=== PATIENT | female | born 1975 | race Caucasian/White ===

== ENCOUNTER 2021-07-16 18:35 | Emergency (ER) | payer OTHER ==
[2021-07-16 18:56] VITALS: RESP 18; TEMP 97.7
[2021-07-16] MEDS ORDERED: SODIUM CHLORIDE 0.9% 1,000 ML IV STA (19:04)
[2021-07-16] MEDS ORDERED: PANTOPRAZOLE 40 MG/10 ML VIAL IVP STA (19:04)
--- NOTE | 2021-07-16 19:09 | ED ---
General Adult HPI - General Chief complaint: Nausea/Vomiting/Diarrhea Stated complaint: Nausea,Vomiting-ETOH withdrawal Time Seen by Provider: 07/16/21 18:55 Source: patient, RN notes reviewed, old records reviewed Mode of arrival: ambulatory - History of Present Illness Initial comments: 46-year-old female presents from [facility] for nausea and vomiting and abdominal pain. Patient states that since been ongoing for over a year and a half. She states that she did see a doctor in the past and was told she had an infected gallbladder and they could not remove it at that time and just gave her antibiotics. Patient states that she normally drinks a pint of vodka a day h owever she has not been having the " hard stuff " in over a month but she is still drinking daily just small cans of spritzers but is nonspecific. Patient states that she did drink this morning. She was sent from [facility] for evaluation of abdominal pain and self reported 18 pound weight loss over the past month. She does state she smokes marijuana daily but denies any drug use. She denies any homicidal or suicidal ideations. -: year(s) (1) Location: abdomen (Epigastric) Severity scale (1-10): 8 Quality: aching, constant Consistency: constant Improves with: none Associated Symptoms: loss of appetite, nausea/vomiting Treatments Prior to Arrival: none - Related Data Home Medications Medication Instructions Recorded Confirmed Ondansetron [Zofran] 4 mg PO TID PRN 07/16/21 07/16/21 Pantoprazole Sodium [Protonix] 40 mg PO BID 07/16/21 07/16/21 Sucralfate [Carafate] 1 gm PO ACHS 07/16/21 07/16/21 Previous Rx's Medication Instructions Recorded Cephalexin [Keflex] 500 mg PO BID 5 Days #10 cap 07/16/21 Potassium Chloride ER [K-Dur 20] 20 meq PO DAILY 30 Days #30 tab 07/16/21 Allergies Allergy/AdvReac Type Severity Reaction Status Date / Time prochlorperazine Allergy Unknown Verified 07/16/21 20:27 [From Compazine] Review of Systems ROS Statement: Those systems with pertinent positive or pertinent negative responses have been documented in the HPI. ROS Other: All systems not noted in ROS Statement are negative. Past Medical History Past Medical History: Asthma History of Any Multi-Drug Resistant Organisms: None Reported Past Surgical History: No Surgical Hx Reported Past Psychological History: Depression Smoking Status: Current every day smoker Past Alcohol Use History: Abuse Past Drug Use History: Marijuana General Exam Limitations: no limitations General appearance: alert, in no apparent distress Eye exam: Present: EOMI. Absent: scleral icterus, conjunctival injection, periorbital swelling ENT exam: Present: mucous membranes moist Neck exam: Present: full ROM. Absent: tenderness, meningismus, lymphadenopathy, thyromegaly Respiratory exam: Present: normal lung sounds bilaterally. Absent: respiratory distress, accessory muscle use, decreased breath sounds Cardiovascular Exam: Present: regular rate GI/Abdominal exam: Present: soft, tenderness (Epigastric), normal bowel sounds. Absent: distended, guarding, rebound, rigid Extremities exam: Present: normal capillary refill. Absent: pedal edema Back exam: Present: normal inspection, full ROM. Absent: tenderness, CVA tenderness (R), CVA tenderness (L), rash noted Neurological exam: Present: alert, oriented X3 Psychiatric exam: Present: normal affect, normal mood Skin exam: Present: warm, dry, normal color. Absent: rash, cyanosis, diaphoretic Course Vital Signs 07/16/21 07/16/21 07/16/21 18:49 20:59 23:00 Temperature 97.7 F Pulse Rate 98 91 92 Respiratory 18 18 18 Rate Blood Pressure 99/69 127/74 102/63 O2 Sat by Pulse 98 97 95 Oximetry Medical Decision Making - Medical Decision Making Patient presents with 1 year of abdominal pain with 18 pound weight loss over the past month. She is a daily drinker and states that she has not been eating well. She was sent from [facility] for evaluation of abdominal pain. X-ray shows a nonspecific bowel gas pattern with no acute process. CT shows a component of gastritis. Cyst within the pancreatic head and pancreatic tail. Hepatic steatosis and colonic diverticulosis without evidence of diverticulitis. Urinalysis shows urinary tract infection and she was given Rocephin. White blood cell count is 13.7 with left shift. Potassium is 2.5 and she was given replacement in the emergency room. Her sodium is 130. Lactic acid is 2.5. Patient was given IV fluids and pain medication. This is likely alcoholic gastritis. She was [facility] with [facility] prescription for potassium supplementation and antibiotics for urinary tract infection. She was directed to return to the emergency room with pain or concerning symptoms including fevers or increased abdominal pain. She is agreeable to this plan of care. - Lab Data Result diagrams: 07/16/21 19:29 07/16/21 19:29 Lab Results 07/16/21 07/16/21 07/16/21 Range/Units 19:29 19:29 19:29 WBC 13.7 H (3.8-10.6) k/uL RBC 4.87 (3.80-5.40) m/uL Hgb 15.9 (11.4-16.0) gm/dL Hct 46.9 H (34.0-46.0) % MCV 96.4 (80.0-100.0) fL MCH 32.7 (25.0-35.0) pg MCHC 33.9 (31.0-37.0) g/dL RDW 13.5 (11.5-15.5) % Plt Count 368 (150-450) k/uL MPV 8.4 Neutrophils % 80 % Lymphocytes % 12 % Monocytes % 6 % Eosinophils % 1 % Basophils % 0 % Neutrophils # 10.9 H (1.3-7.7) k/uL Lymphocytes # 1.7 (1.0-4.8) k/uL Monocytes # 0.8 (0-1.0) k/uL Eosinophils # 0.2 (0-0.7) k/uL Basophils # 0.1 (0-0.2) k/uL PT 11.2 (9.0-12.0) sec INR 1.0 (<1.2) APTT 27.5 (22.0-30.0) sec Sodium (137-145) mmol/L Potassium (3.5-5.1) mmol/L Chloride (98-107) mmol/L Carbon Dioxide (22-30) mmol/L Anion Gap mmol/L BUN (7-17) mg/dL Creatinine (0.52-1.04) mg/dL Est GFR (CKD-EPI)AfAm (>60 ml/min/1.73 sqM) Est GFR (CKD-EPI)NonAf (>60 ml/min/1.73 sqM) Glucose (74-99) mg/dL Lactic Ac Sepsis Rflx Plasma Lactic Acid Ramon (0.7-2.0) mmol/L Calcium (8.4-10.2) mg/dL Total Bilirubin (0.2-1.3) mg/dL AST (14-36) U/L ALT (4-34) U/L Alkaline Phosphatase (38-126) U/L Total Protein (6.3-8.2) g/dL Albumin (3.5-5.0) g/dL Amylase (30-110) U/L Lipase (23-300) U/L Urine Color Dark Yellow Urine Appearance Cloudy H (Clear) Urine pH 6.0 (5.0-8.0) Ur Specific [place] 1.023 (1.001-1.035) Urine Protein 1+ H (Negative) Urine Glucose (UA) Negative (Negative) Urine Ketones Negative (Negative) Urine Blood Negative (Negative) Urine Nitrite Negative (Negative) Urine Bilirubin 1+ H (Negative) Urine Urobilinogen 8.0 (<2.0) mg/dL Ur Leukocyte Esterase Large H (Negative) Urine RBC <1 (0-5) /hpf Urine WBC 37 H (0-5) /hpf Ur Squamous Epith Cells 23 H (0-4) /hpf Urine Bacteria Few H (None) /hpf Urine Mucus Many H (None) /hpf Serum Alcohol mg/dL 07/16/21 07/16/21 07/16/21 Range/Units 19:29 19:29 19:53 WBC (3.8-10.6) k/uL RBC (3.80-5.40) m/uL Hgb (11.4-16.0) gm/dL Hct (34.0-46.0) % MCV (80.0-100.0) fL MCH (25.0-35.0) pg MCHC (31.0-37.0) g/dL RDW (11.5-15.5) % Plt Count (150-450) k/uL MPV Neutrophils % % Lymphocytes % % Monocytes % % Eosinophils % % Basophils % % Neutrophils # (1.3-7.7) k/uL Lymphocytes # (1.0-4.8) k/uL Monocytes # (0-1.0) k/uL Eosinophils # (0-0.7) k/uL Basophils # (0-0.2) k/uL PT (9.0-12.0) sec INR (<1.2) APTT (22.0-30.0) sec Sodium 130 L (137-145) mmol/L Potassium 2.5 L* (3.5-5.1) mmol/L Chloride 90 L (98-107) mmol/L Carbon Dioxide 35 H (22-30) mmol/L Anion Gap 5 mmol/L BUN 8 (7-17) mg/dL Creatinine 0.38 L (0.52-1.04) mg/dL Est GFR (CKD-EPI)AfAm >90 (>60 ml/min/1.73 sqM) Est GFR (CKD-EPI)NonAf >90 (>60 ml/min/1.73 sqM) Glucose 138 H (74-99) mg/dL Lactic Ac Sepsis Rflx Y Plasma Lactic Acid Ramon 2.5 H* (0.7-2.0) mmol/L Calcium 8.6 (8.4-10.2) mg/dL Total Bilirubin 1.1 (0.2-1.3) mg/dL AST 22 (14-36) U/L ALT 13 (4-34) U/L Alkaline Phosphatase 125 (38-126) U/L Total Protein 6.1 L (6.3-8.2) g/dL Albumin 3.0 L (3.5-5.0) g/dL Amylase 39 (30-110) U/L Lipase 107 (23-300) U/L Urine Color Urine Appearance (Clear) Urine pH (5.0-8.0) Ur Specific [place] (1.001-1.035) Urine Protein (Negative) Urine Glucose (UA) (Negative) Urine Ketones (Negative) Urine Blood (Negative) Urine Nitrite (Negative) Urine Bilirubin (Negative) Urine Urobilinogen (<2.0) mg/dL Ur Leukocyte Esterase (Negative) Urine RBC (0-5) /hpf Urine WBC (0-5) /hpf Ur Squamous Epith Cells (0-4) /hpf Urine Bacteria (None) /hpf Urine Mucus (None) /hpf Serum Alcohol <10 mg/dL 07/16/21 Range/Units 22:07 WBC (3.8-10.6) k/uL RBC (3.80-5.40) m/uL Hgb (11.4-16.0) gm/dL Hct (34.0-46.0) % MCV (80.0-100.0) fL MCH (25.0-35.0) pg MCHC (31.0-37.0) g/dL RDW (11.5-15.5) % Plt Count (150-450) k/uL MPV Neutrophils % % Lymphocytes % % Monocytes % % Eosinophils % % Basophils % % Neutrophils # (1.3-7.7) k/uL Lymphocytes # (1.0-4.8) k/uL Monocytes # (0-1.0) k/uL Eosinophils # (0-0.7) k/uL Basophils # (0-0.2) k/uL PT (9.0-12.0) sec INR (<1.2) APTT (22.0-30.0) sec Sodium (137-145) mmol/L Potassium (3.5-5.1) mmol/L Chloride (98-107) mmol/L Carbon Dioxide (22-30) mmol/L Anion Gap mmol/L BUN (7-17) mg/dL Creatinine (0.52-1.04) mg/dL Est GFR (CKD-EPI)AfAm (>60 ml/min/1.73 sqM) Est GFR (CKD-EPI)NonAf (>60 ml/min/1.73 sqM) Glucose (74-99) mg/dL Lactic Ac Sepsis Rflx Plasma Lactic Acid Ramon 1.4 (0.7-2.0) mmol/L Calcium (8.4-10.2) mg/dL Total Bilirubin (0.2-1.3) mg/dL AST (14-36) U/L ALT (4-34) U/L Alkaline Phosphatase (38-126) U/L Total Protein (6.3-8.2) g/dL Albumin (3.5-5.0) g/dL Amylase (30-110) U/L Lipase (23-300) U/L Urine Color Urine Appearance (Clear) Urine pH (5.0-8.0) Ur Specific [place] (1.001-1.035) Urine Protein (Negative) Urine Glucose (UA) (Negative) Urine Ketones (Negative) Urine Blood (Negative) Urine Nitrite (Negative) Urine Bilirubin (Negative) Urine Urobilinogen (<2.0) mg/dL Ur Leukocyte Esterase (Negative) Urine RBC (0-5) /hpf Urine WBC (0-5) /hpf Ur Squamous Epith Cells (0-4) /hpf Urine Bacteria (None) /hpf Urine Mucus (None) /hpf Serum Alcohol mg/dL Disposition Clinical Impression: UTI (urinary tract infection), Lactic acidosis, Hypokalemia, Abdominal pain, History of ETOH abuse Disposition: HOME SELF-CARE Instructions (If sedation given, give patient instructions): Urinary Tract Infection in Women (ED), Hypokalemia (ED), Abdominal Pain (ED) Additional Instructions: Take potassium supplements for low potassium levels and antibiotics for urinary tract infection as prescribed. Return to [facility] for assistance in alcohol withdrawal. Follow-up with your primary care doctor for possible upper GI if symptoms persist. Return to the emergency room if any new or concerning sy mptoms including fevers, increased abdominal pain or persistent nausea vomiting. Prescriptions: Potassium Chloride ER [K-Dur 20] 20 meq PO DAILY 30 Days #30 tab Cephalexin [Keflex] 500 mg PO BID 5 Days #10 cap Is patient prescribed a controlled substance at d/c from ED?: No Referrals: None,Stated [Primary Care Provider] - 1-2 days Time of Disposition: 22:03
[2021-07-16] MEDS ORDERED: THIAMINE 100 MG/ML 2 ML VIAL IVP SCH (19:15)
[2021-07-16 19:38] LABS: Basophils # (A) 0.1 k/uL (0-0.2); Basophils % (A) 0 %; Eosinophils # (A) 0.2 k/uL (0-0.7); Eosinophils % (A) 1 %; HCT 46.9 % (34.0-46.0); HGB 15.9 gm/dL (11.4-16.0); Lymphocytes # (A) 1.7 k/uL (1.0-4.8); Lymphocytes % (A) 12 %; MCH 32.7 pg (25.0-35.0); MCHC 33.9 g/dL (31.0-37.0); MCV 96.4 fL (80.0-100.0); Mean Platelet Volume 8.4; Monocytes # (A) 0.8 k/uL (0-1.0); Monocytes % (A) 6 %; Neutrophils # (A) 10.9 k/uL (1.3-7.7); Neutrophils % (A) 80 %; Platelet Count 368 k/uL (150-450); RBC 4.87 m/uL (3.80-5.40); RDW 13.5 % (11.5-15.5); WBC 13.7 k/uL (3.8-10.6)
[2021-07-16 19:49] LABS: ALT 13 U/L (4-34); AST 22 U/L (14-36); African American GFR (CKD) >90 (>60 ml/min/1.73 sqM); Alcohol <10 mg/dL; Alkaline Phosphatase 125 U/L (38-126); Amylase 39 U/L (30-110); Anion Gap 5 mmol/L; Blood Urea Nitrogen 8 mg/dL (7-17); Calcium 8.6 mg/dL (8.4-10.2); Carbon Dioxide 35 mmol/L (22-30); Chloride 90 mmol/L (98-107); Glucose 138 mg/dL (74-99); Lipase 107 U/L (23-300); Non-African American GFR(CKD) >90 (>60 ml/min/1.73 sqM); Sodium 130 mmol/L (137-145); Total Bilirubin 1.1 mg/dL (0.2-1.3); Total Protein 6.1 g/dL (6.3-8.2)
[2021-07-16 19:50] LABS: Appearance,Urine Cloudy (Clear); Bacteria,Urine Few /hpf; Bilirubin,Urine 1+ (Negative); Blood,Urine Negative (Negative); Color,Urine Dark Yellow; Glucose,Urine (UA) Negative (Negative); Ketones,Urine Negative (Negative); Leukocyte Esterase,Urine Large (Negative); Mucus,Urine Many /hpf; Nitrite,Urine Negative (Negative); Protein,Urine 1+ (Negative); RBC,Urine <1 /hpf (0-5); Specific Gravity,Urine 1.023 (1.001-1.035); Squamous Epithelial Cell,Urine 23 /hpf (0-4); WBC,Urine 37 /hpf (0-5)
[2021-07-16 19:53] LABS: Potassium 2.5 mmol/L (3.5-5.1)
[2021-07-16 19:55] LABS: Partial Thromboplastin Time 27.5 sec (22.0-30.0); Prothrombin Time 11.2 sec (9.0-12.0)
[2021-07-16] MEDS ORDERED: SODIUM CHLORIDE 0.9% 1,000 ML IV ONE (19:55)
[2021-07-16] MEDS ORDERED: Potassium Replacement Protocol 1 EACH MISC MISCELLANE PRN (19:56)
--- NOTE | 2021-07-16 20:01 | XR ---
EXAMINATION TYPE: XR KUB DATE OF EXAM: 07/16/2021 7:48 PM INDICATION: Patient age:Female; 46 years old; Reason for study: abdominal pain; COMPARISON: None. TECHNIQUE: One radiographic view of the abdomen was obtained. FINDINGS: The bowel gas pattern is nonspecific without dilated loops of small or large bowel. There i s no evidence for organomegaly or pneumoperitoneum. The osseous structures are intact. No abnormal calcifications are present. Fecal material and gas are demonstrated throughout the colon and rectum. Mild degenerative changes with endplate spurring throughout the visualized spine. IMPRESSION: Nonspecific bowel gas pattern without radiographic evidence for acute process.
[2021-07-16] MEDS: POTASSIUM CHLORIDE ER 20 MEQ TAB.ER PO SCH ×3 (20:55→22:58)
--- NOTE | 2021-07-16 21:36 | CT ---
EXAMINATION TYPE: CT abdomen pelvis w con CT DLP: 661.8 mGycm, Automated exposure control for dose reduction was used. DATE OF EXAM: 07/16/2021 8:56 PM COMPARISON: None CLINICAL INDICATION:Female, 46 years old with history of abd pain weight loss; abdominal pain, weight loss TECHNIQUE: Standard CT of the abdomen and pelvis following the administration of 100 cc of Isovue 3 00 IV contrast material. Coronal and sagittal reformats were performed. FINDINGS: LOWER CHEST: Unremarkable ABDOMEN LIVER: Diffusely hypoattenuating parenchyma. GALLBLADDER AND BILE DUCTS: Gallbladder is mostly unremarkable. Common duct PANCREAS: Cystic lesions within the pancreatic head measuring up to 28 mm and within the pancreatic t ail measuring up to 91 x 84 mm simple fluid are present. The largest cyst demonstrates mild periphera l wall nodularity best appreciated on series 202 image 51. SPLEEN: Unremarkable. ADRENAL GLANDS: Unremarkable. KIDNEYS AND URETERS: No evidence of hydronephrosis or renal calculus. The ureters are unremarkable. Left renal cyst measuring up to 31 mm. PELVIS BLADDER: Unremarkable REPRODUCTIVE: Unremarkable. ABDOMEN & PELVIS STOMACH AND BOWEL: The rugae of the stomach demonstrate a thickened appearance with hyperemia. No dulce maria dence of bowel obstruction. There are multiple colonic diverticulosis involving the sigmoid colon. Ap pendix is visualized and within normal limits. PERITONEUM: No evidence of pneumoperitoneum or free fluid. VASCULATURE: No evidence of aortic aneurysm. MUSCULOSKELETAL: No acute osseous abnormalities. LYMPH NODES: No gross evidence for lymphadenopathy. SOFT TISSUE/ABDOMINAL WALL: Unremarkable IMPRESSION: 1. Hyperemic gastric rugae which could represent a component of gastritis. 2. Cysts within the pancreatic head and pancreatic tail. The pancreatic tail cyst demonstrates large peripheral soft tissue like nodularity. These may represent pseudocyst from prior pancreatitis versus other etiologies such as traumatic pseudocyst or sidebranch intraductal papillary mucinous neoplasms . This can be further evaluated with MRI pancreatic mass protocol with IV contrast. Correlation with prior imaging at this institution would be of benefit for stability. 3. Hepatic steatosis. 4. Colonic diverticulosis.
[2021-07-16] MEDS ORDERED: cefTRIAXone IN SWFI 1,000 MG/10 ML SYRINGE IVP STA (21:38)
[2021-07-16 23:00] VITALS: BP 102/63; PULSE 92
== END 2021-07-17 01:17 | disposition home or self-care (01) ==
LOC: EC 18:35
DX: N39.0 Urinary tract infection, site not specified (principal); E87.2 Acidosis; E87.6 Hypokalemia; F10.10 Alcohol abuse, uncomplicated; J45.909 Unspecified asthma, uncomplicated; F32.A Depression, unspecified; F17.200 Nicotine dependence, unspecified, uncomplicated; F12.90 Cannabis use, unspecified, uncomplicated; Z88.1 Allergy status to other antibiotic agents; Y90.0 Blood alcohol level of less than 20 mg/100 ml
CPT/HCPCS: 99284; 96374; 96375 ×3; 96361 ×3; 36415; 80053; 82150; 83605; 83690; 85025; 85610; 85730; 81001; 87086; 74018; 74177; G0480; J3411; J0696; C9113; Q9967; J1790; 80320